=== PATIENT | female | born 1950 | race Caucasian/White ===

== ENCOUNTER 2025-04-16 12:03 | Day surgery (SDC) | payer MEDICARE, BC, SELFPAY ==
[2025-04-16] VITALS (17 sets, daily range): BP systolic 108–131; BP diastolic 71–100; BMI 24.6
[2025-04-16 13:49] LABS: Hematocrit 39.8 % (37.0-47.0); Hemoglobin 13.8 g/dL (12.0-16.0); Mean Corp Hgb Conc. 34.7 g/dL (33.0-37.0); Mean Corpuscular Volume 94.8 fL (81.0-99.0); Platelet Count 130 10^3/uL (130-400); Red Cell Dist. Width 13.1 % (11.5-14.5)
[2025-04-16 15:10] LABS: Blood Urea Nitrogen 21 mg/dl (7-17); Calcium 10.1 mg/dl (8.4-10.2); Carbon Dioxide 30 mmol/L (22-30); Chloride 99 mmol/L (98-107); Estimated Creatinine Clearance 41 ml/min; Glucose 88 mg/dl (70-99); Potassium 4.6 mmol/L (3.5-5.1); Sodium 132 mmol/L (135-145); eGFR 58.39
--- NOTE | 2025-04-16 15:25 | ITS.CL.CATH ---
Undercar Specialist - Catheterization
Cardiac Catheterization
Procedure Report:
LEFT AND RIGHT HEART CATHETERIZATION
Date of Procedure: April 16, 2025
Referring: Christine Ferris PA-C
PROCEDURES:
1. Left heart catheterization, coronary angiogram.
2. Moderate sedation.
3. Right heart catheterization
INDICATION: New cardiomyopathy with new LVEF 20-25%, severe pulm HTN
ACCESS: Right radial artery, 6Fr. sheath, under US guidance.
HEMODYNAMICS : (mmHg)
RA (m) : 5
RV (s/d,m) : 27/3, 6
PA (s/d, m) : 28/9, 17
PCWP (m) : 13
PA saturation: 67.6% on room air
AO saturation: 95.9% on room air
RA saturation: 70.8% on room air
Cardiac Output : 4.15 L/min by Luis Manuel calculation
Cardiac Index : 2.44 L/min/m-2 by Luis Manuel calculation
Systemic vascular resistance: 1734 dsc^(-5)
Pulmonary vascular resistance: 2.17woods unit
AO (s/d) : 133/73
LVEDP : 16
No significant gradient across the aortic valve to suggest aortic stenosis.
CORONARY FINDINGS
Dominance: Right
Left Main Trunk (LMT): Large caliber vessel that gives rise to the LAD and LCx branches and is free of angiographic disease.
Left Anterior Descending Artery (LAD): Large caliber vessel that gives off 2 major diagonal branches as it courses along the anterior inter-ventricular groove before wrapping around the cardiac apex. The LAD and its branches are free of
angiographic disease. Lower branch of D2 is a very small caliber vessel with diffuse moderate to severe atherosclerotic plaque which is out of proportion to explain her LVEF 20-25%
Left Circumflex Artery (LCx): Large caliber vessel that gives off 1 major obtuse marginal (OM) branches as it courses along the atrio-ventricular (AV) groove. The LCx and its branches are free of angiographic disease.
Right Coronary Artery (RCA): Large caliber dominant vessel that gives rise to the posterior descending artery (RPDA) and postero-lateral ventricular (RPLV) branches distally. The RCA and its branches are free of angiographic disease.
SEDATION: 47 minutes of procedural sedation was utilized. IV Midazolam and IV Fentanyl were administered. An independent medical claims processor was present to assist with and help manage the patient's level of consciousness and physiologic status.
RADIATION SUMMARY: Fluoro Time (min): 5.1 Dose (mGy): 195.6, DAP (Gy.cm2) : 14.5
Closure Device: There were no immediate intra-procedural complications. The sheath was pulled in the laboratory veterinarian and a vascular-band applied to the right wrist for radial artery hemostasis using the patent hemostasis technique.
CONCLUSIONS
1. No obstructive coronary artery disease. Lower branch of D2 is a very small caliber vessel with diffuse moderate to severe atherosclerotic plaque which is out of proportion to explain her LVEF 20-25%
2. Near normal right and left sided filling pressures with normal cardiac output and elevated SVR.
RECOMMENDATIONS
1. Wean radial band per protocol. Monitor right hand perfusion and for bleeding from the radial site following removal of the vascular-band following trans-radial access.
2. Continue aggressive medical therapy for non-ischemic cardiomyopathy and risk factor modification for secondary CAD prevention.
3. Hydrate with normal saline to mitigate the risk of contrast-induced acute kidney injury.
4. 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
Candy Chase MD, FACC, [facility] [place]
Copy to: Christine Ferris PA-C
--- NOTE | 2025-04-16 18:03 | PTCARENOTE ---
report called to Wendi at [facility]. [phone]. And notified them that pt will be spending the night in the hospital.
--- NOTE | 2025-04-16 18:55 | PTCARENOTE ---
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 Patient completed her bedrest and assisted to the bathroom upon arrival to room 2249. Right radial and right brachial dressings are dry and intact but ecchymotic. Right groin dressing
is dry and intact, area is soft with no signs of hematoma or bleeding. SR on the monitor, with no complaints of pain. Oriented to the room and plan of care, daughter at the bedside, patient eating dinner now.
[2025-04-16] MEDS: TOPROL XL 75 MG PO (20:16)
[2025-04-16] MEDS: REMERON 15 MG PO (22:32)
[2025-04-16] MEDS: DESYREL 50 MG PO (22:32)
[2025-04-16] MEDS: SEROQUEL 25 MG PO (22:32)
--- NOTE | 2025-04-16 22:40 | PTCARENOTE ---
Received patient at change of shift. SR on the monitor, HR in the 60s. R groin with dime sized oozing, marked, unchanged. R radial and brachial sites CDI. Doppler R pedal. No complaints from pt at this time, call aguilar within reach.
[2025-04-17 04:05] VITALS: BP 111/67
[2025-04-17 04:56] LABS: Blood Urea Nitrogen 22 mg/dl (7-17); Calcium 9.9 mg/dl (8.4-10.2); Carbon Dioxide 26 mmol/L (22-30); Chloride 104 mmol/L (98-107); Estimated Creatinine Clearance 46 ml/min; Glucose 86 mg/dl (70-99); HDL Cholesterol 41 mg/dl; LDL Cholesterol, Calculated 94 mg/dl; Potassium 4.6 mmol/L (3.5-5.1); Sodium 135 mmol/L (135-145); Very Low Density Lipoprotein 19 mg/dl (0-30); eGFR > 60.00
[2025-04-17 05:01] LABS: Hematocrit 37.3 % (37.0-47.0); Hemoglobin 13.0 g/dL (12.0-16.0); Mean Corp Hgb Conc. 34.9 g/dL (33.0-37.0); Mean Corpuscular Volume 95.2 fL (81.0-99.0); Platelet Count 119 10^3/uL (130-400); Red Cell Dist. Width 13.2 % (11.5-14.5)
[2025-04-17 07:28] VITALS: BP 117/69
[2025-04-17] MEDS: EFFEXOR XR 225 MG PO (07:54)
[2025-04-17] MEDS: TOPROL XL 75 MG PO (07:54)
[2025-04-17] MEDS: ZESTRIL 40 MG PO (07:54)
[2025-04-17] MEDS: ELIQUIS 5 MG PO (07:54)
[2025-04-17] MEDS: ALDACTONE 25 MG PO (07:54)
[2025-04-17] MEDS: SENOKOT 17.2 MG PO (07:54)
[2025-04-17] MEDS: FARXIGA 10 MG PO (07:54)
[2025-04-17] MEDS: LASIX 40 MG PO (07:54)
[2025-04-17] MEDS: MIRALAX 17 GRAMS PO (07:55)
[2025-04-17] MEDS: LOW STRENGTH ASPIRIN 81 MG PO (07:55)
[2025-04-17 08:02] LABS: Hepatitis C Antibody Negative (Negative)
--- NOTE | 2025-04-17 08:56 | PTCARENOTE ---
Discharge teaching provided, patient verbalized understanding. IV and telemetry removed. Patient getting dressing, her daughter will drive her home today
--- NOTE | 2025-04-17 09:07 | W.PN.CARDCBS ---
Addendum entered and electronically signed by Akira May MD 04/17/25 10:26:
I saw and examined the patient.
The Motor Mechanic's note was reviewed and I agree with the note.
Comment: Briefly, 74-year-old woman past medical history of cardiomyopathy with severely reduced left ventricular ejection fraction (20-25%) who presented for left/right heart catheterization 04/16/2025.
Results reviewed with the patient at bedside this morning
Nonischemic cardiomyopathy based on LV dysfunction out of proportion to burden of CAD -disease in a small diagonal branch but otherwise nonobstructive
Near normal filling pressures with elevated SVR based on invasive hemodynamics
Continue beta-vanessa, RENUKA, SGLT2
Increase spironolactone
Continue current Lasix dosing
History of paroxysmal atrial fibrillation but maintaining sinus rhythm here� cont Eliquis for risk reduction of cardioembolic stroke
Stable for discharge from my perspective
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
Original Note:
Today's Communication / Plan
-
resume eliquis this morning
increase spironolactone to 25mg/daily
follow with Dr. Diego
home today
Impression / Plan
-
PCP: Montana Garland MD
CDY: Kenyon Diego MD
74 y/o, recently hospitalized at OSH and diagnosed w/chronic systolic HFrEF, 20-25% with moderate MR and severe pulm HTN. Presented yesterday for LHC/RHC. Monitored overnight and stable on tele, groin stable.
RHC- PA 28/9, PCW 13, CO 4.1, CI 2.4
LHC- LVEDP 16
non obstructive coronary artery disease
D2 very small caliber w/diffuse mod-sev atherosclerotic plaque, out of proportion to explain low EF
IMPRESSION:
Chronic systolic HFrEF, 20-25%
Moderate MR
Severe Pulm HTN, now improved with near normal R/L filling pressures
Non obstructive CAD, s/p cath 04/16
HTN
AFib
Depression/anxiety
PLAN:
Stable on tele overnight, SB/SR, no vt/arrhythmia
right groin site with mild ecchymosis, no ht/bleed
oob ambulating
resume eliquis this morning
continue GDMT with toprol, furosemide, jardiance
increase spironolactone to 25mg/daily
followup with Dr. Diego as scheduled
home today
Progress Note - Automation Specialist
Subjective
Date of Service: April 17, 2025
Denies cp/palps/dyspnea
groin site tender but improved overnight
oob ambulating
Objective
Labs:
04/17/25 04:10
04/17/25 04:10
Labs
Hgb 13.0 g/dL (12.0-16.0) 04/17/25 04:10
Hct 37.3 % (37.0-47.0) 04/17/25 04:10
Plt Count 119 10^3/uL (130-400) L 04/17/25 04:10
Sodium 135 mmol/L (135-145) 04/17/25 04:10
Potassium 4.6 mmol/L (3.5-5.1) 04/17/25 04:10
BUN 22 mg/dl (7-17) H 04/17/25 04:10
Creatinine 0.9 mg/dL (0.6-1.0) 04/17/25 04:10
Glucose 86 mg/dl (70-99) 04/17/25 04:10
Vital Signs and I&O:
Vital Signs
Temp Pulse Resp BP Pulse Ox
97.8 F 67 18 117/69 99
04/17/25 07:40 04/17/25 08:00 04/17/25 07:40 04/17/25 07:28 04/17/25 07:40
Vital Signs
Temp Pulse Resp BP Pulse Ox
97.8 F 67 18 117/69 99
04/17/25 07:40 04/17/25 08:00 04/17/25 07:40 04/17/25 07:28 04/17/25 07:40
Intake & Output
04/15/25 04/16/25 04/17/25 04/18/25
06:59 06:59 06:59 06:59
Intake Total 200 / 200
Balance 200 / 200
Physical Exam
Physical Exam
AAOx3, MAEE 5/5
RRR S1 S2 no murmurs
CTA bilat, non labored
soft abd, + bs
right groin site with mild ecchymosis but no ht/bleeding, non tender, no bruit
bilat extremities w/palpable distal pulses, no edema
--- NOTE | 2025-04-17 09:17 | W.DS.TRANS ---
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
-
Discharge Instructions:
Sleep Apnea Risk Low
Discharge Diagnosis/Procedures Cardiac catheterization
Diet Low Cholesterol
Driving Restrictions No driving for 24 hours
Instructions:
Stand-Alone Forms: DC Instructions- Cath/EP Lab
Changes to Home Medications: Yes
Discharge Medications:
DC Medications w/original date entered in [employer]
acetaminophen 325 mg tablet (Tylenol) 650 mg PO Q4H PRN pain 04/16/25
apixaban 5 mg tablet (Eliquis) 5 mg PO BID 04/16/25
aspirin 81 mg tablet 81 mg PO DAILY 04/16/25
cyanocobalamin (vitamin B-12) 1,000 mcg tablet (Vitamin B-12) 1,000 mcg PO DAILY 04/16/25
empagliflozin 10 mg tablet (Jardiance) 10 mg PO DAILY 04/16/25
furosemide 40 mg tablet (Lasix) 40 mg PO DAILY 04/16/25
lisinopril 40 mg tablet 40 mg PO DAILY 04/16/25
lorazepam 0.5 mg tablet (Ativan) 0.5 mg PO BID PRN anxiety 04/16/25
melatonin 5 mg disintegrating tablet 5 mg PO HS 04/16/25
metoprolol succinate 25 mg tablet,extended release 24 hr 75 mg PO BID 04/16/25
mirabegron 50 mg tablet,extended release 24 hr 50 mg PO DAILY 04/16/25
mirtazapine 15 mg tablet 15 mg PO HS 04/16/25
multivitamin 1 tab PO DAILY 04/16/25
polyethylene glycol 3350 17 gram oral powder packet 17 g PO DAILY 04/16/25
quetiapine 25 mg tablet 25 mg PO HS 04/16/25
sennosides 8.6 mg capsule (senna) 17.2 mg PO DAILY 04/16/25
spironolactone 25 mg tablet 25 mg PO DAILY #0 tabs 04/16/25
trazodone 50 mg tablet 50 mg PO HS 04/16/25
venlafaxine 75 mg capsule,extended release 24 hr (Effexor XR) 225 mg PO DAILY 04/16/25
Home Medication Changes
DOSE INCREASE: spironolactone
Pending Results: No
--- NOTE | 2025-04-17 10:30 | PTCARENOTE ---
Patient escorted to [facility] in a wheelchair
--- NOTE | 2025-04-17 14:06 | CM ---
pt prev indep, lives with her daughter in a 1 story home. no dc planning needs or dmes noted. plan is for dc to home today.
== END 2025-04-17 10:42 | disposition home or self-care (01) ==
LOC: CATH 12:03
PROVIDERS: Nurse Practitioner; ATTENDING PHYSICIAN Internal Medicine Interventional Cardiology; FAMILY PHYSICIAN Internal Medicine
DX: I25.10 Atherosclerotic heart disease of native coronary artery without angina pectoris (principal); I11.0 Hypertensive heart disease with heart failure; I50.22 Chronic systolic (congestive) heart failure; I27.20 Pulmonary hypertension, unspecified; I34.0 Nonrheumatic mitral (valve) insufficiency; I48.91 Unspecified atrial fibrillation; F41.9 Anxiety disorder, unspecified; F32.A Depression, unspecified; Z79.01 Long term (current) use of anticoagulants; Z79.82 Long term (current) use of aspirin; Z79.899 Other long term (current) drug therapy
CPT/HCPCS: 99152; 99153; 80048; 80061; 85027; 86803; 93460; C1769; C1894; Q9967